=== PATIENT | male | born 1955 | race Hispanic/Latino ===

== ENCOUNTER 2017-02-14 23:56 | Emergency (ER) | payer OTHER ==
[~2017-02-14 23:56] MED LIST: Sodium Chloride 0.9% 1,000 ML BAG ONE
[2017-02-15] MEDS ORDERED: Ondansetron HCl/PF 4 MG/2 ML Vial ONE (00:31)
[2017-02-15 00:39] LABS: #Basophils 0.1 thou/uL (0.0-0.2); #Eosinphils 0.4 thou/uL (0.0-0.7); #Lymphocytes 1.9 thou/uL (1.20-3.40); #Monocytes 0.8 thou/uL (0.11-0.59); #Neutrophils 4.5 thou/uL (1.40-6.50); %Eosinophils 4.9 % (0.0-10.0); %Lymphocytes 25.5 % (21.0-51.0); %Neutrophils 58.6 % (42.0-75.0); Hemoglobin 15.8 g/dL (14.0-18.0); Mean Corpuscular Hemoglobin 30.6 pg (27.0-31.0); Mean Corpuscular Volume 87.3 fl (80.0-94.0); Platelet Count 342 thou/uL (130-400); Red Blood Cell (RBC) Count 5.15 mill/uL (4.70-6.10); White Blood Cell (WBC) Count 7.6 thou/uL (4.8-10.8)
[2017-02-15 00:57] LABS: ALT (SGPT) 16 U/L (0-55); AST (SGOT) 21 U/L (5-34); Albumin 3.8 g/dL (3.4-4.8); Alkaline Phosphatase 80 U/L (40-150); Anion Gap 13 mmol/L (10-20); BUN (Urea Nitrogen) 15 mg/dL (8.4-25.7); Bilirubin, Total 0.6 mg/dL (0.2-1.2); Calc. Creatinine Clearance 0 mL/min (70-130); Calcium 9.4 mg/dL (7.8-10.44); Carbon Dioxide 24 mmol/L (23-31); Chloride 101 mmol/L (98-107); Estimated GFR-MDRD 69; Globulin 3.4 g/dL (2.4-3.5); Glucose 95 mg/dL (80-115); Lipase 19 U/L (8-78); Potassium 3.7 mmol/L (3.5-5.1); Protein, Total 7.2 g/dL (5.8-8.1); Sodium 134 mmol/L (136-145)
--- NOTE | 2017-02-15 09:25 | ULT ---
PRELIMINARY REPORT/[facility]/EMERGENCY AFTER HOURS PROCEDURE: EXAM: US Abdomen Limited, Right Upper Quadrant CLINICAL HISTORY: 61 years old, male; Pain; Abdominal pain; Acute; Patient HX: Ruq pain for last 24 hours with n/v; Additional info: N/a TECHNIQUE: Real-time ultrasound of the right upper quadrant with image documentation. COMPARISON: CT Stone Protocol 02/15/2017 12:29:41 AM FINDINGS: Liver: Unremarkable. No mass. No intrahepatic bile duct dilation. Gallbladder: The gallbladder wall measures 3 mm in thickness. No gallstones. The Rodríguez's sign is po sitive. Common bile duct: The CBD measures 5 mm. No stones. No dilation. Pancreas: Unremarkable as visualized. Right kidney: The right kidney measures 10.2 x 4.8 x 5 cm. No stones. No hydronephrosis. IMPRESSION: 1. No acute findings. Thank you for allowing us to participate in the care of your patient. Dictated and Authenticated by: Kalee Montes MD 02/15/2017 5:36 AM Central Time ([place] \T\ [place]) FINAL REPORT EXAM: GALLBLADDER ULTRASOUND: HISTORY: Right upper quadrant pain. COMPARISON: None. TECHNIQUE: Utilizing a multihertz transducer, sonographic imaging of the right upper quadrant is performed in t he longitudinal and transverse plane. FINDINGS/IMPRESSION: This report is in agreement with the preliminary report by [facility]. There is no sonographic evidence of cholelithiasis or definite sonographic evidence of cholecystitis. However, video rental clerk does report a positive Rodríguez's sign. If there is concern for acalculous cholecystitis, consider HIDA scan. Common bile duct is poorly defined. If there is concern for choledocholithiasis, additional imaging can be performed. CODE T POS: [facility]
--- NOTE | 2017-02-15 09:29 | CT ---
PRELIMINARY REPORT/[facility]/EMERGENCY AFTER HOURS PROCEDURE: EXAM: CT Abdomen and Pelvis Without Intravenous Contrast CLINICAL HISTORY: 61 years old, male; Pain; Abdominal pain; Localized; Right; Patient HX: Pt complaining of rt side pa in started at 1900 today. No HX of stones TECHNIQUE: Axial computed tomography images of the abdomen and pelvis without intravenous contrast. This CT exa m was performed using one or more of the following dose reduction techniques: automated exposure con trol, adjustment of the mA and/or kV according to patient size, and/or use of iterative reconstruction technique. COMPARISON: No relevant prior studies available. FINDINGS: The lung bases are clear. Right kidney: Small right upper pole intrarenal calculus. No hydronephrosis or visible mass. No hydroureter or visible ureteral calculus. Left kidney: No intrarenal calculus, hydronephrosis or visible mass. No hydroureter or visible ureteral calculus. No definite gallbladder abnormality by CT. No biliary tree dilation. Ultrasound could be more sensitive for detecting gallstones, if clinically needed. Unremarkable appearance of the liver, spleen, adrenal glands, and pancreas. No free air, ascites, or bowel distention. No evidence for abdominal aortic aneurysm. No retroperitoneal adenopathy. CT pelvis: Urinary bladder unremarkable by CT. The appendix is identified and there are no suspicious findings for appendicitis. No pericecal infla mmatory changes are seen. Some high attenuation material in the proximal appendix may represent residual contrast from a prior exam, other ingested material, or possibly an appendicolith. There are no CT findings to suggest diverticulitis. No abnormal mass or fluid collection in the pelvis. IMPRESSION: Small right upper pole intrarenal calculus. No renal or ureteral calculus. No hydronephrosis or hydroureter. No free air or bowel distention. No CT findings to suggest appendicitis, see above. Unremarkable gallbladder by CT. Other findings discussed above. Thank you for allowing us to participate in the care of your patient. Dictated and Authenticated by: Julio Cesar Meneses MD 02/15/2017 1:40 AM Central Time ([place] \T\ [place]) FINAL REPORT CT ABDOMEN AND PELVIS WITHOUT IV CONTRAST: No evidence of acute process. I am in agreement with the preliminary report. POS: [facility]
== END 2017-02-15 06:00 | disposition home or self-care (01) ==
LOC: MADERS 23:56
DX: R10.13 Epigastric pain (principal); R10.11 Right upper quadrant pain; I48.91 Unspecified atrial fibrillation; K21.9 Gastro-esophageal reflux disease without esophagitis; E78.5 Hyperlipidemia, unspecified; E78.00 Pure hypercholesterolemia, unspecified; E78.1 Pure hyperglyceridemia; I49.9 Cardiac arrhythmia, unspecified; Z79.899 Other long term (current) drug therapy
CPT/HCPCS: 74176; 76705; 80053; 83690; 85025; 96361; 96374; 96375; J2270; J2405; J7050

== ENCOUNTER 2018-06-28 10:36 | Emergency (ER) | payer OTHER, BC ==
[2018-06-28] MEDS ORDERED: predniSONE 20 MG TAB ONE (11:36)
== END 2018-06-28 11:50 | disposition home or self-care (01) ==
LOC: MADERS 10:36
DX: T63.441A Toxic effect of venom of bees, accidental (unintentional), initial encounter (principal); I48.91 Unspecified atrial fibrillation; K21.9 Gastro-esophageal reflux disease without esophagitis; E78.2 Mixed hyperlipidemia
CPT/HCPCS: 99282; J7506

== ENCOUNTER 2018-06-29 07:34 | Outpatient (CLI) | payer OTHER, BC ==
--- NOTE | 2018-06-29 09:25 | ULT ---
SONOGRAM ABDOMEN COMPLETE: HISTORY: Upper abdomen pain. FINDINGS: The patient was reportedly tender over the gallbladder fossa at the time of the exam. No gallbladder wall thickening or pericholecystic fluid are apparent. No shadowing stones. The common duct is 0.3 cm. Liver unremarkable without focal mass or intrahepatic biliary dilatation. No free fluid. The spleen, kidneys, and visualized portions of the abdominal aorta, IVC, and pancreas are unremarkable. IMPRESSION: No significant abnormalities are demonstrated. POS: [facility]
== END 2018-06-29 07:35 | disposition home or self-care (01) ==
LOC: MADULT 07:34
PROVIDERS: ATTEND Internal Medicine Gastroenterology
DX: R10.9 Unspecified abdominal pain (principal)
CPT/HCPCS: 76700

== ENCOUNTER 2019-12-12 16:40 | Outpatient (CLI) | payer OTHER, BC ==
--- NOTE | 2019-12-12 17:13 | RAD ---
LEFT KNEE THREE VIEWS: 12/12/19 HISTORY: Chronic knee pain. There are arthritic changes of the knee with some mild medial and lateral compartment and patellofemo ral degenerative change. Intramedullary garth is partially visualized in the distal femur. No fracture or any significant joint effusion. IMPRESSION: No acute findings. POS: [facility]
--- NOTE | 2019-12-12 17:14 | RAD ---
RIGHT KNEE THREE VIEWS: 12/12/19 HISTORY: Chronic knee pain. There is not any significant arthritic changes of the knee. No joint effusion or other findings. IMPRESSION: Essentially unremarkable knee. POS: [facility]
== END 2019-12-12 16:41 | disposition home or self-care (01) ==
LOC: MADRAD 16:40
PROVIDERS: ATTEND Family Medicine
DX: M25.561 Pain in right knee (principal); M25.562 Pain in left knee

== ENCOUNTER 2021-02-26 08:22 | Emergency (ER) | payer BC, OTHER ==
[2021-02-26] MEDS ORDERED: Acetaminophen/Codeine 30-300mg Tablet ONE (09:20)
== END 2021-02-26 09:30 | disposition home or self-care (01) ==
LOC: MADERS 08:22
DX: S20.212A Contusion of left front wall of thorax, initial encounter (principal); K21.9 Gastro-esophageal reflux disease without esophagitis; I48.91 Unspecified atrial fibrillation; E78.5 Hyperlipidemia, unspecified; E78.2 Mixed hyperlipidemia; W18.30XA Fall on same level, unspecified, initial encounter

== ENCOUNTER 2021-05-04 00:56 | Emergency (ER) | payer OTHER, BC ==
[2021-05-04] MEDS ORDERED: Lorazepam 2 MG/ML VIAL ONE (01:20)
== END 2021-05-04 02:00 | disposition home or self-care (01) ==
LOC: MADERS 00:56
DX: F41.9 Anxiety disorder, unspecified (principal); I48.91 Unspecified atrial fibrillation; K21.9 Gastro-esophageal reflux disease without esophagitis; E78.2 Mixed hyperlipidemia
CPT/HCPCS: 96372; J2060

== ENCOUNTER 2021-06-17 20:31 | Emergency (ER) | payer OTHER, BC ==
[~2021-06-17 20:31] MED LIST changes: +Iopamidol 370 76% 100 ML VIAL ONE
[2021-06-17] MEDS ORDERED: Ondansetron ODT 4 MG TAB ONE (21:41)
[2021-06-17] MEDS ORDERED: Famotidine In NaCl 20 mg/50 ml Premix Bag ONE (22:09)
[2021-06-17] MEDS ORDERED: Mag-Al Plus 1200 MG/1200 MG/120 MG/30 ML UDCUP ONE (22:09)
[2021-06-17] MEDS ORDERED: Lidocaine Viscous Sol 2% 15 ml UD Cup ONE (22:09)
[2021-06-17 23:03] LABS: ALT (SGPT) 30 U/L (8-55); AST (SGOT) 31 U/L (5-34); Albumin 4.3 g/dL (3.4-4.8); Alkaline Phosphatase 105 U/L (40-110); Anion Gap 23 mmol/L (10-20); BUN (Urea Nitrogen) 13 mg/dL (8.4-25.7); Bilirubin, Total 0.6 mg/dL (0.2-1.2); Calc. Creatinine Clearance 0 mL/min (70-130); Calcium 9.2 mg/dL (7.8-10.44); Carbon Dioxide 14 mmol/L (23-31); Chloride 105 mmol/L (98-107); Globulin 3.8 g/dL (2.4-3.5); Glucose 108 mg/dL (80-115); Lipase 25 U/L (8-78); Potassium 3.1 mmol/L (3.5-5.1); Protein, Total 8.1 g/dL (5.8-8.1); Sodium 139 mmol/L (136-145)
[2021-06-17 23:24] LABS: Band 10 % (5-11); Hemoglobin 17.6 g/dL (14.0-18.0); Lymphocytes 8 % (21-51); MDiff Complete? YES; Mean Corpuscular HGB CONC 32.9 g/dL (32.0-36.0); Mean Corpuscular Hemoglobin 29.8 pg (27.0-31.0); Mean Corpuscular Volume 90.4 fL (78.0-98.0); Mean Platelet Volume 7.7 fL (7.4-10.4); Monocytes 2 % (0-10); Neutrophil 80 % (42-75); Platelet Count 315 thou/uL (130-400); RBC Distribution Width 11.7 % (11.5-14.5); RBC Morphology Normal; Red Blood Cell (RBC) Count 5.92 mill/uL (4.70-6.10); White Blood Cell (WBC) Count 11.9 thou/uL (4.8-10.8)
[2021-06-17] MEDS ORDERED: Potassium Chloride 20 MEQ TAB ONE (23:42)
[2021-06-17 23:55] LABS: Bicarbonate (HCO3v) 22.4 mmol/L (22.0-28.0); CO2 Tension (PvCO2) 44.4 mmHg (42.0-51.0); Calcium, Ionized 1.06 mmol/L (1.15-1.33); Chloride 108 mmol/L (98-107); Hemoglobin - Calc 16.5 g/dL (14.0-18.0); Potassium 4.2 mmol/L (3.5-5.1); Sodium 142 mmol/L (138-145); T. Carbon Dioxide 23.8 mmol/L (22.0-28.0); vO2 Saturation-calc 54.1 % (60.0-85.0)
[2021-06-17 23:59] LABS: Magnesium 1.6 mg/dL (1.6-2.6)
[2021-06-18 00:01] LABS: Acetaminophen Less than 6.0 mcg/mL (10.0-30.0); Alcohol 26 mg/dL (Less than 10); Salicylate Less than 8.0 mg/dL (15.0-30.0)
[2021-06-18] MEDS ORDERED: Morphine 4 MG/ML VIAL ONE (01:07)
== END 2021-06-18 01:48 | disposition home or self-care (01) ==
LOC: MADERS 20:31
DX: K52.9 Noninfective gastroenteritis and colitis, unspecified (principal); E86.0 Dehydration; T63.451A Toxic effect of venom of hornets, accidental (unintentional), initial encounter; D72.829 Elevated white blood cell count, unspecified; K21.9 Gastro-esophageal reflux disease without esophagitis; E78.5 Hyperlipidemia, unspecified; E78.00 Pure hypercholesterolemia, unspecified; E78.1 Pure hyperglyceridemia; I48.91 Unspecified atrial fibrillation; Z79.899 Other long term (current) drug therapy
CPT/HCPCS: 74177; 80053; 80307; 82330; 82803; 83605; 83690; 83735; 84484; 85025; 93005; 96372; 96374; J0500; J2270; J7050; Q0162; Q9967

== ENCOUNTER 2022-06-22 07:53 | Outpatient (CLI) | payer BC ==
[2022-06-22 08:34] LABS: ALT (SGPT) 15 U/L (8-55); AST (SGOT) 17 U/L (5-34); Albumin 3.8 g/dL (3.4-4.8); Alkaline Phosphatase 80 U/L (40-110); Anion Gap 13 mmol/L (10-20); BUN (Urea Nitrogen) 12 mg/dL (8.4-25.7); Bilirubin, Total 0.8 mg/dL (0.2-1.2); Calc. Creatinine Clearance 0 mL/min (70-130); Carbon Dioxide 21 mmol/L (23-31); Cardiac Risk 4.9 (Less than 4.5); Chloride 107 mmol/L (98-107); Cholesterol 217 mg/dl (< 200 Desired); Estimated GFR 83; Globulin 3.5 g/dL (2.4-3.5); Glucose 98 mg/dL (80-115); HDL Cholesterol 44 mg/dL (>60 Neg Risk); LDL Cholesterol, Calculated 140 mg/dL; Potassium 4.1 mmol/L (3.5-5.1); Protein, Total 7.3 g/dL (5.8-8.1); Sodium 137 mmol/L (136-145); Triglycerides 165 mg/dL (Less than 150)
[2022-06-22 08:50] LABS: #Eosinphils 0.2 thou/uL (0.0-0.7); #Lymphocytes 1.7 thou/uL (1.20-3.40); #Monocytes 0.4 thou/uL (0.11-0.59); #Neutrophils 2.7 thou/uL (1.40-6.50); %Lymphocytes 33.5 % (21.0-51.0); %Monocytes 8.6 % (0.0-10.0); Hemoglobin 15.5 g/dL (14.0-18.0); Mean Corpuscular HGB CONC 33.1 g/dL (32.0-36.0); Mean Corpuscular Hemoglobin 29.3 pg (27.0-31.0); Mean Corpuscular Volume 88.5 fL (78.0-98.0); Mean Platelet Volume 8.9 fL (7.4-10.4); Platelet Count 268 thou/uL (130-400); RBC Distribution Width 11.7 % (11.5-14.5); Red Blood Cell (RBC) Count 5.29 mill/uL (4.70-6.10)
== END 2022-06-22 07:54 | disposition home or self-care (01) ==
LOC: MADLAB 07:53
PROVIDERS: ATTEND Family Medicine
DX: Z13.220 Encounter for screening for lipoid disorders (principal); G45.9 Transient cerebral ischemic attack, unspecified
CPT/HCPCS: 36415; 80053; 80061; 84443; 85025; 93005; 93010

== ENCOUNTER 2022-06-24 12:54 | Outpatient (CLI) | payer BC | END 2022-06-24 12:55 | disposition home or self-care (01) | LOC: MADCT 12:54 | PROVIDERS: ATTEND Family Medicine | DX: G45.9 Transient cerebral ischemic attack, unspecified (principal); G93.89 Other specified disorders of brain; Z98.890 Other specified postprocedural states | CPT/HCPCS: 70450 ==

== ENCOUNTER 2023-02-14 14:21 | Emergency (ER) | payer BC ==
[2023-02-14 16:10] LABS: #Eosinphils 0.2 thou/uL (0.0-0.7); #Lymphocytes 1.5 thou/uL (1.20-3.40); #Monocytes 0.5 thou/uL (0.11-0.59); #Neutrophils 2.8 thou/uL (1.40-6.50); %Basophils 0.5 % (0.0-1.0); %Eosinophils 3.7 % (0.0-10.0); %Lymphocytes 30.1 % (21.0-51.0); %Monocytes 10.3 % (0.0-10.0); %Neutrophils 55.4 % (42.0-75.0); Hemoglobin 15.7 g/dL (14.0-18.0); Mean Corpuscular HGB CONC 33.2 g/dL (32.0-36.0); Mean Corpuscular Hemoglobin 30.8 pg (27.0-31.0); Mean Corpuscular Volume 92.7 fl (78.0-98.0); Mean Platelet Volume 8.3 fL (7.4-10.4); Platelet Count 324 10x3/uL (130-400); RBC Distribution Width 11.5 % (11.5-14.5); Red Blood Cell (RBC) Count 5.11 mill/uL (4.70-6.10); White Blood Cell (WBC) Count 5.1 10x3/uL (4.8-10.8)
[2023-02-14] MEDS ORDERED: Ketorolac Tromethamine 30 MG/ML VIAL ONE (16:22)
[2023-02-14] MEDS ORDERED: Sodium Chloride 0.9% 1,000 ML ONE (16:22)
[2023-02-14 16:31] LABS: ALT (SGPT) 28 U/L (8-55); AST (SGOT) 20 U/L (5-34); Albumin 3.7 g/dL (3.4-4.8); Alkaline Phosphatase 90 U/L (40-110); Anion Gap 13 mmol/L (10-20); BUN (Urea Nitrogen) 14 mg/dL (8.4-25.7); Bilirubin, Total 0.4 mg/dL (0.2-1.2); Calc. Creatinine Clearance 0 mL/min (70-130); Calcium 9.2 mg/dL (7.8-10.44); Carbon Dioxide 23 mmol/L (23-31); Chloride 106 mmol/L (98-107); Estimated GFR 86; Globulin 3.1 g/dL (2.4-3.5); Glucose 93 mg/dL (80-115); Potassium 4.1 mmol/L (3.5-5.1); Protein, Total 6.8 g/dL (5.8-8.1); Sodium 138 mmol/L (136-145)
== END 2023-02-14 17:23 | disposition home or self-care (01) ==
LOC: MADERS 14:21
DX: R53.1 Weakness (principal); U09.9 Post COVID-19 condition, unspecified; I48.91 Unspecified atrial fibrillation
CPT/HCPCS: 71045; 80053; 83735; 83880; 84484; 85025; 93005; 96374; J1885; J7050

== ENCOUNTER 2024-02-28 19:39 | Emergency (ER) | payer BC, OTHER ==
[2024-02-28] MEDS ORDERED: Fluorescein Opthalmic Strip ONE (20:01)
[2024-02-28] MEDS ORDERED: Tetracaine 0.5% PF 4 ML BOT ONE (20:01)
[2024-02-28] MEDS ORDERED: Erythromycin Base 0.5% Ophth Oint 3.5 gm Tube ONE (21:23)
== END 2024-02-28 21:55 | disposition home or self-care (01) ==
LOC: MADERS 19:39
DX: S05.01XA Injury of conjunctiva and corneal abrasion without foreign body, right eye, initial encounter (principal); K21.9 Gastro-esophageal reflux disease without esophagitis; E78.2 Mixed hyperlipidemia; W22.8XXA Striking against or struck by other objects, initial encounter
CPT/HCPCS: 99283

== ENCOUNTER 2024-05-09 14:55 | Emergency (ER) | payer BC, OTHER | END 2024-05-09 15:48 | disposition home or self-care (01) | LOC: MADERS 14:55 | DX: T63.441A Toxic effect of venom of bees, accidental (unintentional), initial encounter (principal); E78.5 Hyperlipidemia, unspecified; Z79.899 Other long term (current) drug therapy | CPT/HCPCS: 99282 ==